=== PATIENT | male | born 1980 | race Caucasian/White ===

== ENCOUNTER 2016-10-25 14:40 | Emergency (ER) | payer SELFPAY ==
[~2016-10-25] VITALS: Ht 175.3 cm; Wt 68.0 kg
--- NOTE | 2016-10-25 14:45 | PD ---
Physical Exam Time Seen by Provider: 14:45 Narrative 36 y/o male with R knee pain/swelling. Symptoms started 4 days ago. No obvious injury but he notes that he is quite active, on his feet. Vital signs reviewed. Seen at triage desk. Awaiting bed placement. [facility] Medical Record Reviewed: Yes Supervised Visit with ESTEFANIA: No Scripts No Active Prescriptions or Reported Meds Iggy Smith Oct 25, 2016 14:45
--- NOTE | 2016-10-25 14:55 | PD ---
HPI Chief Complaint: Injury Time Seen by Provider: 14:53 Travel History International Travel<30 days: No Contact w/Intl Traveler<30days: No Traveled to known affect area: No History of Present Illness HPI 36 YO M presents to the ED for evaluation of 3 day history of right knee pain and swelling. Patient can recall no acute injury. Pain rated 6/10. Worsened by weight bearing. No alleviating factors reported. Patient denies numbness, tingling, weakness or limitation to ROM. 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 No treatment attempted at home. 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 ) Genitourinary Surgery: No Gynecologic Surgery: No Joint Replacement: No Oral Surgery: No Pacemaker: No Thoracic Surgery: No Other Surgery: Yes Social History Alcohol Use: Yes (2-3 WEEK) Tobacco Use: Yes (1/4 PPD) Substance Use: Yes (canabis, cocaine, opiates) Allergies-Medications (Allergen,Severity, Reaction): Coded Allergies: No Known Allergies (Verified , 02/20/16) Reported Meds & Prescriptions Reported Meds & Active Scripts Active Diclofenac Sodium DR (Diclofenac Sodium) 50 Mg Tabdr 50 Mg PO BID Review of Systems Except as stated in HPI: all other systems reviewed are Neg Physical Exam Narrative GENERAL: Well-nourished, well-developed thin, pleasant white male in no acute distress. SKIN: Focused skin assessment warm/dry. HEAD: Normocephalic. EYES: No scleral icterus. No injection or drainage. NECK: Supple, trachea midline. No JVD or lymphadenopathy. CARDIOVASCULAR: Regular rate and rhythm without murmurs, gallops, or rubs. RESPIRATORY: Breath sounds equal bilaterally. No accessory muscle use. GASTROINTESTINAL: Abdomen soft, non-tender, nondistended. MUSCULOSKELETAL: No cyanosis, or edema. FOCUSED RIGHT LOWER EXTREMITY EXAM: 2+ DP pulse. No patellar balloting. No tenderness to palpation of the joint lines. Extends beyond 0, flexes beyond 90 . Varus/valgus stress testing negative. Anterior drawer testing negative. Patient retains full, active range of motion of the knee and ankle. Neurovascularly intact. BACK: Nontender without obvious deformity. No CVA tenderness. Data Data Orders Knee, Complete (4vws) (10/25/16 14:49) Ice/Cold Pack (10/25/16 14:49) Diclofenac (Florencia Sanchez) (10/25/16 15:30) [facility] Medical Decision Making Medical Screen Exam Complete: Yes Emergency Medical Condition: Yes Differential Diagnosis OA versus knee effusion versus internal derangement versus other Narrative Course 36 YO M presents to the ED for evaluation of 3 day history of right knee pain and swelling. Patient can recall no acute injury. Pain rated 6/10. Worsened by weight bearing. No alleviating factors reported. Patient denies numbness, tingling, weakness or limitation to ROM. 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 No treatment attempted at home. Diagnosis Primary Impression: Knee effusion, right Referrals: Orthopedist Patient Instructions: General Instructions, Knee Pain (ED) Additional Instructions: Rest, hydrate. Ice, compress, elevate the extremity. Take antiinflammatories as prescribed. Return to normal, gentle activities as tolerated. No running, jumping activities for the next few weeks. Follow up with the orthopedist. Return to the ED for any urgent or emergent medical condition. Med/Other Pt SpecificInfo: Prescription(s) given Scripts Diclofenac Sodium DR 50 Mg Tabdr50 Mg PO BID #20 TAB Ref 0 Prov:Tariq Dodge MD 10/25/16 Disposition: 01 DISCHARGE HOME Condition: Stable Krista Perdomo Oct 25, 2016 14:55
--- NOTE | 2016-10-25 15:21 | RADRPT ---
EXAM DATE/TIME: 10/25/2016 14:59 [facility] COMPARISON: No previous studies available for comparison. INDICATIONS : Pain right anterior knee for 4 days, denies trauma MEDICAL HISTORY : None. SURGICAL HISTORY : None. ENCOUNTER: Initial ACUITY: 4 - 6 days PAIN SCORE: 5/10 LOCATION: Right knee FINDINGS: No definite fractures, or dislocations are identified. No definite lytic or sclerotic lesion is seen . The joint spaces are well maintained. CONCLUSION: Unremarkable study. Christie Carney MD on October 25, 2016 at 15:19 Board Certified Radiologist. This report was verified electronically.
[2016-10-25] MEDS ORDERED: DICL50TA3 PO (15:24)
[2016-10-25] MEDS ORDERED: DICLOFENAC SODIUM 75 MG DELAYED RELEASE TAB PO ONE (15:30)
== END 2016-10-25 16:59 | disposition home or self-care (01) ==
LOC: NEPK 14:40
DX: M25.461 Effusion, right knee (principal); Z72.0 Tobacco use; Z87.39 Personal history of other diseases of the musculoskeletal system and connective tissue
CPT/HCPCS: 73564; 99283

== ENCOUNTER 2016-11-12 12:54 | Emergency (ER) | payer SELFPAY ==
[~2016-11-12] VITALS: Ht 175.3 cm; Wt 63.5 kg
[~2016-11-12 12:54] MED LIST: DICL50TA3 PO
[2016-11-12 12:56] VITALS: BP 147/87; PULSE 82; RESP 16; TEMP 98.4; O2SAT 99
[2016-11-12] MEDS ORDERED: PERM5CRE11 TOPICAL (13:10)
--- NOTE | 2016-11-12 13:13 | PD ---
HPI Chief Complaint: Skin Problem Time Seen by Provider: 13:10 Travel History International Travel<30 days: No Contact w/Intl Traveler<30days: No Traveled to known affect area: No History of Present Illness HPI 36-year-old male presents emergency Department with complaint of itchiness all over his body times one month. Reports a rash to his left upper thigh, waistline, bilateral upper extremities. Denies fever, vomiting. 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 Has tried topical ointments with no relief of symptoms. Symptoms are mild in severity. No known allergies. No other modifying factors or associated signs and symptoms. 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 ) Genitourinary Surgery: No Gynecologic Surgery: No Joint Replacement: No Oral Surgery: No Pacemaker: No Thoracic Surgery: No Other Surgery: Yes Social History Alcohol Use: Yes (2-3 WEEK) Tobacco Use: Yes (1/4 PPD) Substance Use: Yes (canabis, cocaine, opiates) Allergies-Medications (Allergen,Severity, Reaction): Coded Allergies: No Known Allergies (Verified , 11/12/16) Reported Meds & Prescriptions Reported Meds & Active Scripts Active Elimite Topical (Permethrin) 5% Cream 1 Applic TOPICAL ONCE Diclofenac Sodium DR (Diclofenac Sodium) 50 Mg Tabdr 50 Mg PO BID Review of Systems Except as stated in HPI: all other systems reviewed are Neg Physical Exam Narrative GENERAL: Well-nourished, well-developed male patient, in no acute distress; afebrile, nontoxic-appearing SKIN: Warm and dry. Generalized erythremic pimple-like rash to abdominal waistline, left upper thigh, bilateral upper extremities; some areas appear excoriated. No areas with cellulitic process noted. HEAD: Atraumatic. Normocephalic. EYES: Pupils equal and round. No scleral icterus. No injection or drainage. ENT: Mucosa pink and moist. Airway patent. NECK: Trachea midline. CARDIOVASCULAR: Regular rate. RESPIRATORY: No accessory muscle use. GASTROINTESTINAL: Flat. MUSCULOSKELETAL: No obvious deformities. No clubbing. No cyanosis. No edema. NEUROLOGICAL: Awake and alert. Oriented 3. No obvious cranial nerve deficits. Motor grossly within normal limits. Normal speech. PSYCHIATRIC: Appropriate mood and affect; insight and judgment normal. Data Data Last Documented VS Vital Signs Date Time Temp Pulse Resp B/P Pulse Ox O2 Delivery O2 Flow Rate FiO2 11/12/16 12:56 98.4 82 16 147/87 99 MDM Medical Decision Making Medical Screen Exam Complete: Yes Emergency Medical Condition: Yes Medical Record Reviewed: Yes Differential Diagnosis Scabies, contact dermatitis, bedbugs, nonspecific rash Narrative Course 36-year-old male with rash that appears to be consistent with scabies. Patient is afebrile and nontoxic-appearing. Denies fever, vomiting. Elimite cream prescribed for home. Instructed patient to follow up with primary care provider. Patient verbalizes understanding and agreement with treatment plan. Patient is medically cleared and stable for discharge. Discussed reasons to return to the emergency department. Patient agrees with treatment plan. The patients vital signs are stable and the patient is stable for outpatient follow- up and treatment. Patient discharged home, stable and in no acute distress. Diagnosis Primary Impression: Rash and nonspecific skin eruption Referrals: [facility] Web Design Specialist Primary Care Physician Patient Instructions: General Instructions, Scabies (ED) Departure Forms: Tests/Procedures, Work Release Enter return to work date: Nov 13, 2016 Additional Instructions: Elimite cream as directed; repeat in one week as needed Soaking in cool water or apply cool, wet washcloths to irritated areas to minimize itching Apply anti-itch creams, such as calamine lotion, to relieve pain and itching as needed [id number] antihistamines as needed and as directed to relieve allergic symptoms caused by scabies Wash all pillows, linens, blankets, etc. in hot water and dry in hot dryer Bag and all unwashable linens, Almond stuffed animals, etc. in a tightly sealed garbage bag for up to 2 weeks Follow-up with development associate Follow-up with primary care provider Return to the emergency department immediately with worsening of symptoms Med/Other Pt SpecificInfo: Prescription(s) given Scripts Permethrin Topical (Elimite Topical)5% Cream1 Applic TOPICAL ONCE #1 TUBE Ref 1 Prov:Tabatha Zepeda 11/12/16 Disposition: 01 DISCHARGE HOME Condition: Stable Tabatha Zepeda Nov 12, 2016 13:12
== END 2016-11-12 13:50 | disposition home or self-care (01) ==
LOC: NEPK 12:54
DX: B86 Scabies (principal)
CPT/HCPCS: 99283